=== PATIENT | male | born 1955 | race Caucasian/White ===

== ENCOUNTER 2017-01-25 06:36 | Day surgery (SDC) | payer BC, OTHER ==
[2017-01-25] MEDS ORDERED: Lactated Ringers 1,000 ML IV SCH ×2 (06:45→09:00)
[2017-01-25] MEDS ORDERED: Ondansetron 4 MG/2 ML SDV IVPUSH ONE (08:00)
[2017-01-25] MEDS ORDERED: Ketorolac 30 MG/ML SDV IVPUSH ONE (08:00)
[2017-01-25] MEDS ORDERED: Lactated Ringers 1,000 ML IV ONE (08:00)
[2017-01-25] MEDS ORDERED: Midazolam 1 MG/ML 2 ML SDV IV ONE (08:00)
[2017-01-25] MEDS ORDERED: Propofol 200 MG/20 ML SDV IV ONE (08:00)
[2017-01-25] MEDS ORDERED: Dexamethasone 4 MG/ML 5 ML MDV IVPUSH ONE (08:00)
[2017-01-25] MEDS ORDERED: ceFAZolin 2 GM in Premix Bag 1 BAG IV ONE (08:00)
[2017-01-25] MEDS ORDERED: fentaNYL 100 MCG/2 ML SDV IV ONE (08:00)
[2017-01-25] MEDS ORDERED: Lidocaine 1% with EPINEPHrine 1:100,000 20 ML MDV INJECT ONE (08:27)
[2017-01-25] MEDS ORDERED: Bupivacaine 0.5% 30 ML SDV INJECT ONE (08:27)
[2017-01-25] MEDS ORDERED: fentaNYL 100 MCG/2 ML SDV IVPUSH PRN (08:47)
[2017-01-25] MEDS ORDERED: Naloxone 0.4 MG/ML SDV IVPUSH PRN (08:47)
[2017-01-25] MEDS ORDERED: Ondansetron 4 MG/2 ML SDV IVPUSH PRN (08:47)
[2017-01-25] MEDS ORDERED: HYDROmorphone 2 MG/ML SDV IVPUSH PRN (08:47)
[2017-01-25] MEDS ORDERED: HYDROmorphone 2 MG/ML SDV IV PRN (08:47)
[2017-01-25] MEDS ORDERED: Promethazine 25 MG/ML SDV IM PRN (08:47)
[2017-01-25] MEDS ORDERED: Acetaminophen/HYDROcodone 325-10 MG Tab PO PRN (09:26)
--- NOTE | 2017-01-25 09:29 | PCM.OPNOTE ---
- General Post-Op/Procedure Note Date of Surgery/Procedure: 01/25/17 Operative Procedure(s): umbilical hernia repair. lih repair with mesh Findings: direct lih umbilical hernia Pre Op Diagnosis: lih. umbilical hernia Post-Op Diagnosis: direct lih. umbilical hernia Anesthesia Technique: General LMA, Local (12 ml 1% lido with epi/0.5% buvipicaine) Primary Surgeon: Mark Walsh Anesthesia Provider: Joey Glez Pathology: none EBL in mLs: 5 Complications: None Condition: Good Free Text/Narrative:: see dictation
[2017-01-25 11:24] VITALS: BP 144/86
--- NOTE | 2017-01-25 16:22 | OR ---
DATE OF OPERATION: 01/25/2017 SURGEON: Mark Walsh MD PROCEDURE PERFORMED: Umbilical hernia repair and left inguinal hernia repair with mesh. PREOPERATIVE DIAGNOSIS: Umbilical hernia and left inguinal hernia. POSTOPERATIVE DIAGNOSIS: Umbilical hernia and direct left inguinal hernia. INDICATIONS FOR PROCEDURE: This is a 61-year-old white male, who is referred with a symptomatic inguinal hernia on the left side. In addition, on exam, he was noted to have a small umbilical hernia and was offered repair of both lesions. INTRAOPERATIVE FINDINGS: A total of 12 mL of a 1:1 mixture of 1% lidocaine with epinephrine was used in our repair. Inguinal hernia was repaired with a Bard mesh, preshaped keyhole, lot #[id number], reference #[id number], use by 2021-07-09. DESCRIPTION OF OPERATION: After an excellent LMA anesthetic was administered, the patient was prepped and draped in the usual sterile manner. Our attention was then turned to the patient's umbilicus where a local was used to inject periumbilically. A curvilinear incision was then made around the umbilicus and blunt and sharp dissection was carried out exposing the hernia sac. The hernia sac was transected and the preperitoneal fat was reduced back to the preperitoneal space. Bleeding was controlled with electrocautery. The patient had essentially a 1.5-cm defect which was closed using of [id number] technique with interrupted 0 Ethibond. The posterior aspect of the umbilicus was then tacked to the anterior abdominal wall and then the skin was closed with manuela. Our attention was then turned to the patient's inguinal area, more local was used to infiltrate our planned injection site which was along an intersect point approximately jail between the anterior superior iliac spine and the symphysis pubis. Additionally, an additional 5 mL of local was done in a deep injection, one fingerbreadth medial to the anterior superior iliac spine. The underlying subcu fat was divided using electrocautery. The aponeurosis of the external oblique was exposed and more local was injected below this before making a small incision and carrying out through the external ring. The ilioinguinal nerve was controlled and kept safe. The cord was mobilized and controlled with a 1-inch Mack drain. The cord itself was dissected and a cord lipoma was dissected free. This was clamped, divided, and tied with a suture ligature of 0 Ethibond. The major defect was noted to be in the floor of the inguinal canal. The transversalis fascia was tacked along the inguinal ligament with interrupted 0 Ethibond. The keyhole mesh was then laid below the transversalis muscle layer and tacked along the inguinal ligament inferiorly and then with SorbaFix on the floor of the canal. The muscle and the cord was brought out through the external ring, and the keyhole was closed with running 2- 0 Prolene. The area was irrigated. The aponeurosis was closed with a running 3- 0 Vicryl, Emir's was reapproximated with a running 3-0 Vicryl, and then manuela were used to close the skin. Needle, sponge, and instrument counts were reported as correct. The patient was taken to recovery room in good condition. /[id number] MOJGAN/TIA
== END 2017-01-25 12:25 | disposition home or self-care (01) ==
LOC: FB.SDS 06:36
PROVIDERS: ATTEND Surgery
DX: K40.90 Unilateral inguinal hernia, without obstruction or gangrene, not specified as recurrent (principal); K42.9 Umbilical hernia without obstruction or gangrene; Z98.890 Other specified postprocedural states
CPT/HCPCS: 49505; 49585; A9270; C1781; J0690; J1100; J1885; J2250; J2405; J2704; J3010; J7120

== ENCOUNTER 2020-01-30 08:19 | Day surgery (SDC) | payer BC ==
[2020-01-30] MEDS ORDERED: Propofol 200 MG/20 ML SDV IV ONE (08:20)
[2020-01-30] MEDS ORDERED: Midazolam 1 MG/ML 2 ML SDV IV ONE (08:20)
[2020-01-30] MEDS ORDERED: Ketorolac 30 MG/ML SDV IVPUSH ONE (08:20)
[2020-01-30] MEDS ORDERED: Ondansetron 4 MG/2 ML SDV IVPUSH ONE (08:20)
[2020-01-30] MEDS ORDERED: fentaNYL 100 MCG/2 ML SDV IV ONE (08:20)
[2020-01-30] MEDS ORDERED: Lactated Ringers 1,000 ML IV SCH (08:30)
[2020-01-30] MEDS ORDERED: Sodium Chloride 0.9% 10 ML Syringe FLUSH PRN (08:30)
[2020-01-30] MEDS ORDERED: Acetaminophen/HYDROcodone 325-5 MG Tab PO PRN (11:16)
--- NOTE | 2020-01-30 11:16 | PCM.OPNOTE ---
- General Post-Op/Procedure Note Date of Surgery/Procedure: 01/30/20 Operative Procedure(s): left hydrocelectomy Findings: left hydrocele. Pre Op Diagnosis: left hydrocele Post-Op Diagnosis: Same Anesthesia Technique: General LMA, Local (4 ml 1 % lido with epi/0.5% buvipicaine) Primary Surgeon: Mark Walsh Anesthesia Provider: Kyle Rocha Pathology: sac Complications: None Condition: Good Free Text/Narrative:: see dictation
[2020-01-30] MEDS ORDERED: Bupivacaine 0.5% 30 ML SDV INJECT ONE (11:48)
[2020-01-30] MEDS ORDERED: Lidocaine 1% with EPINEPHrine 1:100,000 20 ML MDV INJECT ONE (11:49)
[2020-01-30 12:36] VITALS: BP 148/103; PULSE 73
--- NOTE | 2020-01-30 13:53 | OR ---
DATE OF OPERATION: 01/30/2020 SURGEON: Mark Walsh MD PROCEDURE PERFORMED: Left hydrocelectomy. PREOPERATIVE DIAGNOSIS: Left hydrocele. POSTOPERATIVE DIAGNOSIS: Left hydrocele. INDICATIONS FOR PROCEDURE: This is a 64-year-old white male, referred with some swelling in his left testicle and had a cystic mass, which transilluminated on exam, which is consistent with a hydrocele. The patient was offered and accepted a hydrocelectomy. He had a left inguinal hernia repair done by me in the past. DESCRIPTION OF OPERATION: After an excellent general anesthetic was administered via the LMA, the patient was prepped and draped in usual sterile manner. We planned our incision through the previous inguinal hernia site. The scar was infiltrated with 4 mL of 1:1 mixture of 1% lidocaine with epinephrine, 0.5% bupivacaine. Our incision was then made. Careful dissection was carried out, exposing the external ring of the inguinal canal and the spermatic cord. We were then able to place gentle pressure on the scrotum, and the hydrocele came up into the base. A small pooja was made in the hydrocele sac, which allowed us to drain the sac and deliver the testicle and hydrocele into the operative wound. The sac was then carefully dissected from the surrounding tissue. This was then opened and the excess was excised. The remaining edge of the sac was then imbricated posteriorly behind the spermatic cord and the testicle. After assuring excellent hemostasis, the testicle was then returned to normal anatomic position. The Emir's fascia was closed with a running 3-0 Vicryl, and Vicryl was used to close the skin. Needle, sponge, and instrument counts were reported as correct. Steri-Strips were applied. Scrotal support was applied. The patient was taken to recovery in good condition. /[id number] /MODL
== END 2020-01-30 12:52 | disposition home or self-care (01) ==
LOC: FB.SDS 08:19
PROVIDERS: ATTEND Surgery
DX: N43.3 Hydrocele, unspecified (principal); Z98.890 Other specified postprocedural states
CPT/HCPCS: 00834; 55040; J1885; J2250; J2405; J2704; J3010; J3490; J7120